=== PATIENT | male | born 1980 | race Caucasian/White ===

== ENCOUNTER 2021-01-07 11:12 | Emergency (ER) | payer OTHER ==
[2021-01-07 11:15] VITALS: BP 111/73; PULSE 100; TEMP 97
--- NOTE | 2021-01-07 12:16 | ED ---
ENT HPI - General Chief complaint: ENT Stated complaint: hearing loss Time Seen by Provider: 01/07/21 11:18 Source: patient, RN notes reviewed Mode of arrival: ambulatory Limitations: no limitations - History of Present Illness Initial comments: This is a 40-year-old male presents emergency Department chief complaint of hearing loss in his right ear. He states his ear just feels plugged. No pain no fevers or chills no nasal congestion. Patient believes that there is wax in his years. - Related Data Previous Rx's Medication Instructions Recorded Ofloxacin 0.3% Ophth Soln [Ocuflox 10 drops RIGHT EAR BID #1 bottle 01/07/21 Ophth Soln] Allergies Allergy/AdvReac Type Severity Reaction Status Date / Time No Known Allergies Allergy Verified 01/07/21 11:58 Review of Systems ROS Statement: Those systems with pertinent positive or pertinent negative responses have been documented in the HPI. ROS Other: All systems not noted in ROS Statement are negative. Past Medical History Past Medical History: No Reported History History of Any Multi-Drug Resistant Organisms: None Reported Past Surgical History: Tonsillectomy Additional Past Surgical History / Comment(s): left leg, abdominal Past Psychological History: No Psychological Hx Reported Smoking Status: Never smoker Past Alcohol Use History: Occasional Past Drug Use History: None Reported General Exam Limitations: no limitations General appearance: alert, in no apparent distress Head exam: Present: atraumatic, normocephalic, normal inspection Eye exam: Present: normal appearance, PERRL, EOMI. Absent: scleral icterus, conjunctival injection, periorbital swelling ENT exam: Present: normal oropharynx, mucous membranes moist, TM's normal bilaterally. Absent: normal exam, normal external ear exam (Cerumen impaction) Neck exam: Present: normal inspection, full ROM. Absent: tenderness, meningismus, lymphadenopathy Respiratory exam: Present: normal lung sounds bilaterally. Absent: respiratory distress, wheezes, rales, rhonchi, stridor Cardiovascular Exam: Present: regular rate, normal rhythm, normal heart sounds. Absent: systolic murmur, diastolic murmur, rubs, gallop, clicks Course Vital Signs 01/07/21 11:12 Temperature 97 F L Pulse Rate 100 Respiratory 18 Rate Blood Pressure 111/73 O2 Sat by Pulse 97 Oximetry Procedures - Ear Wax Removal Right Ear Cerumenolytic Used: 5-10% Sodium Bicarb solution Ear Canal Irrigated by: RN, other (PA) Ear Canal Irrigated With: warm saline with H2O2 using syringe/angiocath Ear Canal(s) Curetted: plastic loops Results: Re-examined: cerumen removed completely TM Visible: TM(s) intact, normal appearance Ear Canal: atraumatic Patient Tolerated Procedure: well, no complications Complications: no problems Medical Decision Making - Medical Decision Making Patient had cerumen impaction this was irrigated, patient discharged in stable condition Disposition Clinical Impression: Cerumen impaction Disposition: HOME SELF-CARE Condition: Stable Instructions (If sedation given, give patient instructions): Earache (ED) Additional Instructions: Please return to the Emergency Department if symptoms worsen or any other concerns. Prescriptions: Ofloxacin 0.3% Ophth Soln [Ocuflox Ophth Soln] 10 drops RIGHT EAR BID #1 bottle Is patient prescribed a controlled substance at d/c from ED?: No Referrals: Juni Goss MD [Primary Care Provider] - 1-2 days Time of Disposition: 12:51
[2021-01-07 13:11] VITALS: RESP 17
== END 2021-01-07 13:11 | disposition home or self-care (01) ==
LOC: EC 11:12
DX: H61.21 Impacted cerumen, right ear (principal); Z90.09 Acquired absence of other part of head and neck
CPT/HCPCS: 99283

== ENCOUNTER 2021-04-04 19:16 | Observation (INO) | payer OTHER ==
[2021-04-04] MEDS ORDERED: SODIUM CHLORIDE 0.9% 1,000 ML IV STA (19:46)
[2021-04-04] MEDS ORDERED: LORazepam 2 MG/ML INJ IV STA (19:55)
--- NOTE | 2021-04-04 20:02 | ED ---
General Adult HPI - General Chief complaint: Arrhythmia/Palpitations Stated complaint: rapid heart rate Time Seen by Provider: 04/04/21 19:37 Source: patient, EMS Mode of arrival: EMS Limitations: no limitations - History of Present Illness Initial comments: Dictation was produced using [employer] dictation software. please excuse any grammatical, word or spelling errors. Chief Complaint: 41-year-old male with past medical history anxiety presents with palpitations History of Present Illness: She is 41-year-old male the last couple hours she is been feeling a racing heart. Patient has any cardiac history. He has history of anxiety. Patient denies ever having had symptoms like this in the past. He does not use drugs. Sometimes he uses vaporized tobacco. He has no pain complaints. He lives at home with his . Patient does not take any medications on a regular basis. Denies any chest pain or shortness of breath. The ROS documented in this emergency department record has been reviewed and confirmed by me. Those systems with pertinent positive or negative responses have been documented in the HPI. All other systems are other negative and/or noncontributory. PHYSICAL EXAM: General Impression: Alert and oriented x3, not in acute distress HEENT: Normocephalic atraumatic, extra-ocular movements intact, pupils equal and reactive to light bilaterally, mucous membranes moist. Cardiovascular: Tachycardic Chest: Able to complete full sentences, no retractions, no tachypnea Abdomen: abdomen soft, non-tender, non-distended, no organomegaly Musculoskeletal: Pulses present and equal in all extremities, no peripheral edema Motor: no focal deficits noted Neurological: CN II-XII grossly intact, no focal motor or sensory deficits noted Skin: Intact with no visualized rashes Psych: Normal affect and mood ED course: 41-year-old male presents with chief complaint of palpitations. Vital signs upon arrival shows heart rate of 135, rest of vital signs within acceptable limits. Patient is well-appearing at bedside. Denies any chest pain or shortness of breath. EKG shows sinus tachycardia. Laboratory evaluation obtained. CBC unremarkable. Metabolic panel is negative. Troponin is negative. Chest x-ray is not acute. Patient reevaluated at bedside still significantly tachycardic with a heart rate of 120 even after having been given anxiolytics. Patient will be admitted to observation with consultation to cardiology. At this point is unclear what is causing patient's tachycardia. EKG interpretation: Ventricular rate 1:30, sinus tachycardia,. 1:30, QRS 102, QTc 447. No DE prolongation, no QTC prolongation, no ST or T-wave changes noted. . Overall, this EKG is unremarkable - Related Data Previous Rx's Medication Instructions Recorded Ofloxacin 0.3% Ophth Soln [Ocuflox 10 drops RIGHT EAR BID #1 bottle 01/07/21 Ophth Soln] Allergies Allergy/AdvReac Type Severity Reaction Status Date / Time No Known Allergies Allergy Verified 01/07/21 11:58 Review of Systems ROS Statement: Those systems with pertinent positive or pertinent negative responses have been documented in the HPI. ROS Other: All systems not noted in ROS Statement are negative. 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 ] Respiratory 18 20 Rate Blood Pressure 146/89 147/93 O2 Sat by Pulse 100 100 Oximetry Medical Decision Making - Lab Data Result diagrams: 04/04/21 19:45 04/04/21 19:45 Lab Results 04/04/21 04/04/21 Range/Units 19:45 19:45 WBC 6.7 (3.8-10.6) k/uL RBC 4.78 (4.30-5.90) m/uL Hgb 14.5 (13.0-17.5) gm/dL Hct 44.5 (39.0-53.0) % MCV 93.0 (80.0-100.0) fL MCH 30.3 (25.0-35.0) pg MCHC 32.6 (31.0-37.0) g/dL RDW 13.7 (11.5-15.5) % Plt Count 219 (150-450) k/uL MPV 8.5 Neutrophils % 55 % Lymphocytes % 30 % Monocytes % 8 % Eosinophils % 3 % Basophils % 1 % Neutrophils # 3.7 (1.3-7.7) k/uL Lymphocytes # 2.0 (1.0-4.8) k/uL Monocytes # 0.5 (0-1.0) k/uL Eosinophils # 0.2 (0-0.7) k/uL Basophils # 0.1 (0-0.2) k/uL Sodium 138 (137-145) mmol/L Potassium 3.5 (3.5-5.1) mmol/L Chloride 104 (98-107) mmol/L Carbon Dioxide 25 (22-30) mmol/L Anion Gap 9 mmol/L BUN 18 (9-20) mg/dL Creatinine 0.84 (0.66-1.25) mg/dL Est GFR (CKD-EPI)AfAm >90 (>60 ml/min/1.73 sqM) Est GFR (CKD-EPI)NonAf >90 (>60 ml/min/1.73 sqM) Glucose 173 H (74-99) mg/dL Calcium 9.2 (8.4-10.2) mg/dL Magnesium 1.9 (1.6-2.3) mg/dL Disposition Clinical Impression: Tachycardia Disposition: ADMITTED IP TO THIS HOSP Condition: Fair Referrals: Juni Goss MD [Primary Care Provider] - 1-2 days
[2021-04-04 20:31] LABS: Basophils # (A) 0.1 k/uL (0-0.2); Basophils % (A) 1 %; Eosinophils # (A) 0.2 k/uL (0-0.7); Eosinophils % (A) 3 %; HCT 44.5 % (39.0-53.0); HGB 14.5 gm/dL (13.0-17.5); Lymphocytes % (A) 30 %; MCH 30.3 pg (25.0-35.0); MCHC 32.6 g/dL (31.0-37.0); Mean Platelet Volume 8.5; Monocytes # (A) 0.5 k/uL (0-1.0); Monocytes % (A) 8 %; Neutrophils # (A) 3.7 k/uL (1.3-7.7); Neutrophils % (A) 55 %; Platelet Count 219 k/uL (150-450); RBC 4.78 m/uL (4.30-5.90); RDW 13.7 % (11.5-15.5); WBC 6.7 k/uL (3.8-10.6)
--- NOTE | 2021-04-04 20:40 | XR ---
EXAMINATION: XR chest 1V portable DATE AND TIME: 04/04/2021 8:09 PM CLINICAL INDICATION: PHH; arrhythmia TECHNIQUE: Departmental protocol COMPARISON: 03/18/2016 FINDINGS: The lungs are clear. The pleural spaces are negative. The cardiac silhouette is not enlarged. The remainder of the mediastinal silhouette is unremarkable. The skeletal structures and soft tissues are negative for acute findings. IMPRESSION: No acute radiographic process.
[2021-04-04 20:42] LABS: African American GFR (CKD) >90 (>60 ml/min/1.73 sqM); Anion Gap 9 mmol/L; Blood Urea Nitrogen 18 mg/dL (9-20); Calcium 9.2 mg/dL (8.4-10.2); Carbon Dioxide 25 mmol/L (22-30); Chloride 104 mmol/L (98-107); Glucose 173 mg/dL (74-99); Magnesium 1.9 mg/dL (1.6-2.3); Non-African American GFR(CKD) >90 (>60 ml/min/1.73 sqM); Potassium 3.5 mmol/L (3.5-5.1); Sodium 138 mmol/L (137-145)
[2021-04-04] MEDS ORDERED: NALOXONE 0.4 MG/ML 1 ML VIAL IV PRN (20:53)
[2021-04-04] MEDS ORDERED: SODIUM CHLORIDE 0.9% 1,000 ML IV SCH (21:00)
[2021-04-04 22:06] LABS: Amphetamine Screen,Urine Not Detected (NotDetected); Barbiturate Screen,Urine Not Detected (NotDetected); Benzodiazepines Screen,Urine Not Detected (NotDetected); Cocaine Screen,Urine Not Detected (NotDetected); Methadone Screen, Urine Not Detected (NotDetected); Opiate Screen,Urine Not Detected (NotDetected); Oxycodone Screen, Urine Not Detected (NotDetected); Phencyclidine Screen,Urine Not Detected (NotDetected); Tricyclic Antidepressant,Urine Not Detected (NotDetected); Urn Cannabinoid Scrn Detected (NotDetected)
[2021-04-04 22:29] LABS: T4, Free (Free Thyroxine) 0.78 ng/dL (0.78-2.19)
[2021-04-05 08:22] VITALS: BP 118/74; PULSE 67; RESP 17; TEMP 97.6
--- NOTE | 2021-04-05 13:25 | HP ---
HISTORY AND PHYSICAL CHIEF COMPLAINT: Rapid heart beating. HISTORY OF PRESENT ILLNESS: This is the first known admission for this 41-year-old white male. He came to the emergency room with a complaint of rapid heart beating. When I asked him why he is in the hospital he said he was, "short of breath." All of his studies in the emergency room were normal including a T4. He denied any chest pain, focal neurologic deficits, use of drugs, etc. He does not smoke. His drug screen demonstrated marijuana. When he was confronted about this, he had no comment. He apparently has had some problems with anxiety in the past and he it would seem that he has a mental debility. REVIEW OF SYSTEMS: He denies any headaches, chest pain, cough, fever, chills, hemoptysis, abdominal pain, nausea, vomiting, melena, hematochezia, jaundice, hepatitis, renal failure, hematuria, dysuria, frequency, urgency, incontinence, diabetes, etc. Past medical history, family history and personal and social histories are all otherwise unremarkable and noncontributory. He is not allergic to any medication and denies taking any. Surgically, he has had a tonsillectomy and adenoidectomy and he has had a fracture of the left leg. He does not smoke. PHYSICAL EXAMINATION: Blood pressure 123/74 with a pulse of 79. Respirations were 15. In general, he appeared to be well developed, well nourished, in no acute distress. Skin color is normal. Skin is warm and dry. Lymph nodes are not enlarged. Head, ears, eyes, nose, mouth and throat were normal. Neck veins not distended. Thyroid not enlarged. Chest is clear. Cardiac exam is normal. Abdomen is soft, nontender. Extremities: Normal. Neurological is intact. IMPRESSION: 1. Tachycardia. 2. Probable anxiety. 3. Elevated blood sugar. 4. Mental debility. PLAN: 1. Bedrest. 2. IV fluids. 3. Monitor pulse rate. 4. Free T4. MMODL / IJN: [id number] /
[2021-04-05 18:45] LABS: Hemoglobin A1C 4.9 % (4.0-6.0)
--- NOTE | 2021-04-05 20:39 | DS ---
DISCHARGE SUMMARY CHIEF COMPLAINT: Tachycardia. HISTORY OF PRESENT ILLNESS/PHYSICAL EXAM: Details of this man's history and physical can be found in the initial workup. LABORATORY STUDIES: While he was in the hospital he had laboratory studies, details of which can be found in the laboratory section of his chart. COURSE IN THE HOSPITAL: After admission he was placed on bedrest, started on intravenous fluids and telemetry. He remained in sinus rhythm with a rate dropping down well below 100. He had no symptoms and it was felt he could be discharged on the . He will go home on usual activity, diet and no medications. He will follow up in the office in several days. At that time, we will repeat his blood sugar. FINAL DIAGNOSIS: 1. Tachycardia. 2. Anxiety. 3. Elevated blood sugar. OPERATIONS: None. CONSULTATIONS: None. He is improved. GERRY / KRISTIN: [id number] /
== END 2021-04-05 11:18 | disposition home or self-care (01) ==
LOC: EC 19:16 → 6NMEDSUR 20:54
PROVIDERS: ADMIT Family Medicine; ATTEND Family Medicine
DX: R00.0 Tachycardia, unspecified (principal); F41.9 Anxiety disorder, unspecified; R73.9 Hyperglycemia, unspecified; F79 Unspecified intellectual disabilities; R06.02 Shortness of breath; Z87.81 Personal history of (healed) traumatic fracture; Z98.890 Other specified postprocedural states; Z72.0 Tobacco use
CPT/HCPCS: 93005 ×2; 96374; 99285; 36415; 84439; 84481; 80048; 83735; 84443; 84484; 85025; 80306; 83036; 71045; G0378 ×2; J2060